=== PATIENT | female | born 2000 | race Caucasian/White ===

== ENCOUNTER 2022-12-09 06:24 | Inpatient (IN) | payer OTHER, SELFPAY ==
[2022-12-09] VITALS (297 sets, daily range): BP systolic 79–165; BP diastolic 36–151; PULSE 62–268; RESP 16–18; TEMP 36.6–37.5; O2SAT 80–100; BMI 28.0
--- NOTE | 2022-12-09 06:23 | PM.IMHP ---
H&P: HPI History of Present Illness Date/Time: 12/09/22 06:23 Chief Complaint: Gestational hypertension at term Narrative: this is the 22-year-old 1 para 0 38 weeks gestation for induction of labor secondary to elevated blood pressures has otherwise been uncomplicated PIH labs will be drawn. She is positive for group B strep PMF Family History Family History Father Diabetes mellitus Other Cervical cancer Social History Social History Substance use: never Spiritual care concerns: No Meds Home Medications and Allergies Home Medications Medication Instructions Recorded Confirmed Type vits no.126-ferrous fum 1 tablet PO DAILY 12/08/22 12/08/22 History 28 mg iron-folic acid 800 mcg tablet (Classic ) Allergies Allergy/AdvReac Type Severity Reaction Status Date / Time No Known Allergies Allergy Verified 12/08/22 12:39 Exam Const: General: cooperative, healthy appearing, comfortable and average body habitus Orientation/consciousness: oriented to person, oriented to place and oriented to time Resp: Effort & Inspection: normal respiratory effort Cardio: Rate: regular rate Rhythm: regular rhythm Heart sounds: S1 normal heart sound present and S2 normal heart sound present GI: Inspection: normal to inspection ( gravid soft uterus) Assessment and Plan Assessment and plan (1) Term : Code(s): Z34.90 - Encounter for supervision of normal , unspecified, unspecified trimester Status: Acute (2) Gestational hypertension: Code(s): O13.9 - Gestational [-induced] hypertension without significant proteinuria, unspecified trimester Status: Acute (3) Positive testing for group B Streptococcus: Code(s): B95.1 - Streptococcus, group B, as the cause of diseases classified elsewhere Status: Acute Plan medical induction labor. PIH labs will be drawn. Group B strep prophylaxis undertaken. Spontaneous vaginal delivery expected
[2022-12-09] MEDS: AMPICILLIN 2 GM/NS 100 ML 2 GM/100 ML BAG IVPB (07:02)
[2022-12-09] MEDS: LACTATED RINGERS 1,000 ML 125 ML IV CONT ×2 (07:02→11:58)
[2022-12-09] MEDS: OXYTOCIN 30 UNITS/NS 500 ML 30 UNITS/500 ML BAG 6 UNITS IV CONT (07:02)
[2022-12-09 07:19] LABS: Basophils Percent Auto 0.3 % (0.2-1.2); Eosinophils Absolute Auto 0.1 K/mm3 (0-0.3); Eosinophils Percent Auto 0.6 % (0-4.4); Hematocrit 32.8 % (37.0-47.0); Hemoglobin 10.8 g/dL (12.0-15.0); Immature Granulocyte Absolute 0.14 K/mm3 (0.00-0.031); Immature Granulocyte Percent A 1.3 % (0-0.5); Lymphocytes Absolute Auto 2.47 K/mm3 (0.9-3.2); Mean Corpuscular HGB Conc 32.9 g/dl (32-36); Mean Corpuscular Hemoglobin 29.6 pg (26-34); Mean Corpuscular Volume 89.9 fl (80-100); Mean Platelet Volume 11.2 fl (7.4-10.4); Monocytes Absolute Auto 0.9 K/mm3 (0.1-0.6); Monocytes Percent Auto 8.7 % (2.6-8.5); Neutrophils Absolute Auto 7.1 K/mm3 (1.3-6.7); Neutrophils Percent Auto 66.1 % (45.5-73.1); Platelet Count Result 162 k/mm3 (150-375); Red Blood Count 3.65 M/mm3 (4.2-5.4); Red Cell Distribution Width 13.3 % (11.5-14.5); White Blood Count 10.8 K/mm3 (4.5-10.0)
[2022-12-09 07:29] LABS: Uric Acid 5.1 mg/dL (2.5-7.5)
[2022-12-09 07:30] LABS: Alanine Aminotransferase 15 U/L (6-35); Albumin Level 3.4 g/dL (3.5-5.1); Alkaline Phosphatase 162 U/L (38-126); Anion Gap 1 mmol/L (8-16); Aspartate Amino Transferase 20 U/L (14-36); Bilirubin,Total 0.2 mg/dL (0.2-1.3); Blood Urea Nitrogen 9 mg/dL (7-17); Calcium 8.5 mg/dL (8.4-10.2); Carbon Dioxide 24 mmol/L (22-30); Chloride 103 mmol/L (98-107); Estimated CRCL calculation 157 ml/min; Estimated Glomerular Filt Rate > 60; Glucose 88 mg/dL (65-110); Potassium 3.6 mmol/L (3.4-5.0); Sodium 128 mmol/L (137-145)
[2022-12-09 08:10] LABS: HIV 1/2 Ab P24 Ag Result Negative (Negative)
[2022-12-09 09:50] LABS: Rapid Plasma Reagin Non-Reactive (NonReactive)
[2022-12-09] MEDS: AMPICILLIN 1 GM/NS 50 ML 1 GM/50 ML BAG IVPB ×3 (11:02→19:32)
[2022-12-09] MEDS: fentaNYL CITRATE INJ (*CRX) 100 MCG/2 ML VIAL 50 MCG IV PUSH ×2 (11:29→12:10)
--- NOTE | 2022-12-09 11:54 | PM.OBPNLAB ---
Pain Control Date/time seen: 12/09/22 11:54 Pain control: tolerating well Comments: Getting epidural Pelvic Exam Dilation (cm): 3
--- NOTE | 2022-12-09 12:41 | WPDANESEPPF ---
Anes - Initial Pre Proc Eval Procedure: Labor Epidural Date/Time: 12/09/22 12:41 Surgeon: Pedro Wright MD Pre Op Diagnosis: labor pain Pre Op Diagnosis: iol Patient Data Age: 22 Gender: F Height: 1.68 m Weight: 79 kg Last Vital Signs Temp 36.9 C 12/09/22 11:00 Pulse 116 H 12/09/22 12:39 Resp 18 12/09/22 11:00 BP 119/69 12/09/22 12:39 Pulse Ox 99 12/09/22 12:40 O2 Del Method Room Air 12/09/22 06:47 Allergies Allergy/AdvReac Type Severity Reaction Status Date / Time No Known Allergies Allergy Verified 12/08/22 12:39 Home Medications Medication Instructions Recorded Confirmed Type vits no.126-ferrous fum 1 tablet PO DAILY 12/08/22 12/08/22 History 28 mg iron-folic acid 800 mcg tablet (Classic ) Laboratory Tests 12/09/22 06:57 WBC 10.8 H K/mm3 (4.5-10.0) RBC 3.65 L M/mm3 (4.2-5.4) Hgb 10.8 L g/dL (12.0-15.0) Hct 32.8 L % (37.0-47.0) MCV 89.9 fl (80-100) MCH 29.6 pg (26-34) MCHC 32.9 g/dl (32-36) RDW 13.3 % (11.5-14.5) Plt Count 162 k/mm3 (150-375) MPV 11.2 H fl (7.4-10.4) Immature Gran % (Auto) 1.3 H % (0-0.5) Neut % (Auto) 66.1 % (45.5-73.1) Lymph % (Auto) 23.0 % (18.3-44.2) [place] % (Auto) 8.7 H % (2.6-8.5) Eos % (Auto) 0.6 % (0-4.4) Baso % (Auto) 0.3 % (0.2-1.2) Lymph # (Auto) 2.47 K/mm3 (0.9-3.2) [place] # (Auto) 0.9 H K/mm3 (0.1-0.6) Eos # (Auto) 0.1 K/mm3 (0-0.3) Baso # (Auto) 0.0 K/mm3 (0.0-0.1) Abs Immat Gran (auto) 0.14 H K/mm3 (0.00-0.031) Absolute Neuts (auto) 7.1 H K/mm3 (1.3-6.7) Absolute Nucleated RBC 0.0 K/mm3 (0.0-0.012) Nucleated RBC % 0.0 % (0.0-0.2) Sodium 128 L mmol/L (137-145) Potassium 3.6 mmol/L (3.4-5.0) Chloride 103 mmol/L (98-107) Carbon Dioxide 24 mmol/L (22-30) Anion Gap 1 L mmol/L (8-16) BUN 9 mg/dL (7-17) Creatinine 0.50 L mg/dL (0.7-1.0) Estim Creat Clear Calc 157 ml/min Estimated GFR > 60 (59 - ) Glucose 88 mg/dL (65-110) Uric Acid 5.1 mg/dL (2.5-7.5) Calcium 8.5 mg/dL (8.4-10.2) Total Bilirubin 0.2 mg/dL (0.2-1.3) AST 20 U/L (14-36) ALT 15 U/L (6-35) Alkaline Phosphatase 162 H U/L (38-126) Total Protein 7.0 g/dL (6.3-8.2) Albumin 3.4 L g/dL (3.5-5.1) RPR Non-reactive (NonReactive) HIV 1&2 Ab/P24 Ag 4thGn Negative (Negative) Blood Type A Positive Antibody Screen Negative : gestational age (DARYL 12/23/22) Patient hx anesthesia problems: none Family hx anesthesia problems: none Results Review: All pre-operative results and documents have been reviewed as part of the pre-operative evaluation. [facility] Family History Family History Father Diabetes mellitus Other Cervical cancer Social History Social History Smoking status: Never smoker Second hand tobacco smoke exposure: No Substance use: never Lack of Transportation: No Lack of Food: Never True Current Housing: I Have Housing Concerned About Future Housing: No Difficulty Paying Gas/Electric Bills: No Difficulty Paying for Meds: No Currently Unemployed: No Education: Grade School Difficulty w/ Childcare or Family Care: No Spiritual care concerns: No Anes - Eval Final PreProcedure Day of Procedure 12/09/22 12:41 Heart: regular rate and rhythm Airway: Mallampati scale class II Neurological: alert and oriented ASA classification: II Emergent: no Anesthetic plan: proceed Anesthesia type and monitoring: regional epidural Results Review: All pre-operative results and documents have been reviewed as part of the pre-operative evaluation. Informed Consent: The patient's anesthetic plan and its attendant risks and benef
--- NOTE | 2022-12-09 15:26 | PC.NURSE ---
1316 - Introductions were made and mother shared how she would like to feed her baby with pumping and bottle. Resources provided with educational trifold for bonding/feeding to call if she has question regarding pump fitting and there is to be no pain with pumping.
--- NOTE | 2022-12-09 16:25 | PM.OBPNLAB ---
Pain Control Date/time seen: 12/09/22 16:25 Pain control: tolerating well and epidural Pelvic Exam Dilation (cm): 5 Effacement (%): 90 station: -1 Amniotic membrane status: Leaking
--- NOTE | 2022-12-09 16:26 | PM.DS ---
DS: Admitting Diagnosis Discharge Date Admitting Diagnosis Term /gestational hypertension DS: Discharge Diagnosis Discharge Diagnosis (1) Positive testing for group B Streptococcus: Code(s): B95.1 - Streptococcus, group B, as the cause of diseases classified elsewhere Status: Acute (2) Gestational hypertension: Code(s): O13.9 - Gestational [-induced] hypertension without significant proteinuria, unspecified trimester Status: Acute (3) Term : Code(s): Z34.90 - Encounter for supervision of normal , unspecified, unspecified trimester Status: Acute DS: Summary Hospital Course Reason for hospitalization: patient was admitted active labor with group B strep. She underwent spontaneous vaginal delivery an adequate treatment for group B strep Hospital Course: hospital course unremarkable. She remained afebrile. She was up voiding without difficulty, ambulating, generally without complaints. Time Spent with Patient Time attestation: Total time spent providing and/or coordinating discharge services: DS: Data Data Completed and Pending Labs on day of discharge: Labs from last 24 hours 12/09/22 06:57 WBC 10.8 H RBC 3.65 L Hgb 10.8 L Hct 32.8 L MCV 89.9 MCH 29.6 MCHC 32.9 RDW 13.3 Plt Count 162 MPV 11.2 H Immature Gran % (Auto) 1.3 H Neut % (Auto) 66.1 Lymph % (Auto) 23.0 [place] % (Auto) 8.7 H Eos % (Auto) 0.6 Baso % (Auto) 0.3 Lymph # (Auto) 2.47 [place] # (Auto) 0.9 H Eos # (Auto) 0.1 Baso # (Auto) 0.0 Abs Immat Gran (auto) 0.14 H Absolute Neuts (auto) 7.1 H Absolute Nucleated RBC 0.0 Nucleated RBC % 0.0 Sodium 128 L Potassium 3.6 Chloride 103 Carbon Dioxide 24 Anion Gap 1 L BUN 9 Creatinine 0.50 L Estim Creat Clear Calc 157 Estimated GFR > 60 Glucose 88 Uric Acid 5.1 Calcium 8.5 Total Bilirubin 0.2 AST 20 ALT 15 Alkaline Phosphatase 162 H Total Protein 7.0 Albumin 3.4 L RPR Non-reactive HIV 1&2 Ab/P24 Ag 4thGn Negative Blood Type A Positive Antibody Screen Negative Discharge Plan Discharge Attending physician on discharge: Pedro Mayfield Consulting providers: Myriam Gonzalez; Angelica Gonzalez Discharging Clinician: Gonzalez Willams Patient Disposition: Home, Self-Care Activity: pelvic rest Diet: regular Discharge Instructions: Call or return if temperature above 100.4? F, increased abdominal pain, increased vaginal bleeding or any new problems. Education: Mom and Baby Guide Given to: Mother Follow-Up: Call your delivering provider's office for an appointment to be seen in: 6 weeks Mom and baby should come to the [facility] for the follow-up appointment. Appointment Date/Time: Tuesday December 13, 2022 at 9:00 am What to expect at your follow-up visit: Call [phone] if you are unable to keep your appointment time. BREAST CARE: * Wear a snug supportive bra. * Bottle Feeding: * May apply ice packs EPISIOTOMY/PERINEAL CARE: * Until bleeding stops, use your corby bottle after urinating * Change your pad frequently throughout the day * You may take sitz baths several times a day (fill your bathtub with warm water and soak for 20 minutes.) Do NOT bathe in the water * No tub baths until seen by your physician - You may shower ACTIVITY: * Rest as much as possible. * Do not exercise or lift anything heavier than your baby (such as laundry or other children.) * Avoid stairs or driving as much as possible. * Do not put anything into the vagina. No douching, tampons, or sexual activity until seen by physician. NOTIFY PHYSICIAN IF YOU HAVE ANY QUESTIONS OR IF ANY OF THE FOLLOWING SYMPTOMS OCCUR: * If your episiotomy/perineum becomes red, swollen, or more painful than what you have experienced in the hospital. * If your vaginal bleeding becomes foul smelling. * If your vaginal bleeding becomes more h
[2022-12-09] MEDS: TERBUTALINE SULFATE 1 MG/ML VIAL 0.25 MG SUB-Q (21:25)
--- NOTE | 2022-12-09 21:44 | PM.OBPNLAB ---
Pain Control Date/time seen: 12/09/22 21:44 Pain control: tolerating well and epidural Pelvic Exam Dilation (cm): 10 Effacement (%): 100 station: 0 Amniotic membrane status: Leaking
--- NOTE | 2022-12-09 23:54 | P.PCNOB_ITS ---
OB - Delivery Note Procedure Delivery date: 12/09/22 Procedure: mil Induction method: AROM Delivery augmentation: Pitocin Delivery monitor: External FHT and Internal Uterine Route of delivery: forceps (low/outlet) Episiotomy description: None Laceration Description: Perineal - 1st Degree Delivery repair: vicryl Specimen: No Quantitative Blood Loss (ml): 160 Anesthesia type: Epidural Disposition: Floor [place] Baby Date of : 12/09/22 Time of : 23:39 Weeks of gestation at delivery: 38 Infant gender: Male position: Left Occiput Posterior Placenta delivery description: Spontaneous Cord Vessel Description: 3 Vessels, Nuchal Cord and Loose
[2022-12-10] VITALS (29 sets, daily range): BP systolic 91–141; BP diastolic 55–79; PULSE 91–123; RESP 16; TEMP 36.4–37.6; O2SAT 97–100
[2022-12-10] MEDS: OXYTOCIN 30 UNITS/NS 500 ML 30 UNITS/500 ML BAG 125 UNITS IV CONT (00:13)
[2022-12-10] MEDS: LACTATED RINGERS 1,000 ML 125 ML IV CONT (00:13)
[2022-12-10] MEDS: BENZOCAINE 20% AER SPR (*SP) 56 GM CAN 1 SPRAY (01:49)
[2022-12-10] MEDS: WITCH HAZEL 40 PADS 1 PAD (01:50)
[2022-12-10] MEDS: ACETAMINOPHEN 325 MG TABLET 650 MG PO (03:29)
[2022-12-10 06:03] LABS: Hematocrit 29.6 % (37.0-47.0); Hemoglobin 9.8 g/dL (12.0-15.0)
--- NOTE | 2022-12-10 07:35 | PM.OBPNVD ---
OB - PN: Subj Subjective Date/time seen: 12/10/22 07:35 Patient comments: no complaints and pain well controlled baby status: doing well OB - PN: Obj Data Labs 12/10/22 05:04 12/09/22 06:57 Labs: Laboratory Results - last 24 hr 12/09/22 12/10/22 06:57 05:04 WBC 10.8 H RBC 3.65 L Hgb 10.8 L 9.8 L Hct 32.8 L 29.6 L MCV 89.9 MCH 29.6 MCHC 32.9 RDW 13.3 Plt Count 162 MPV 11.2 H Immature Gran % (Auto) 1.3 H Neut % (Auto) 66.1 Lymph % (Auto) 23.0 [place] % (Auto) 8.7 H Eos % (Auto) 0.6 Baso % (Auto) 0.3 Lymph # (Auto) 2.47 [place] # (Auto) 0.9 H Eos # (Auto) 0.1 Baso # (Auto) 0.0 Abs Immat Gran (auto) 0.14 H Absolute Neuts (auto) 7.1 H Absolute Nucleated RBC 0.0 Nucleated RBC % 0.0 RPR Non-reactive HIV 1&2 Ab/P24 Ag 4thGn Negative Blood Type A Positive Antibody Screen Negative OB - PN A/P Plan day: 1 Plan: routine care Time Spent With Patient Time: Total time spent is greater than 50% in coordination of care (as documented) at patient's floor/unit and/or counseling patient: Time with patient: less than 15 minutes Exam Const: General: cooperative, healthy appearing and comfortable Nutritional Appearance: average body habitus Orientation/consciousness: oriented to person, oriented to place and oriented to time HENMT: Head: normal to inspection Resp: Effort & Inspection: normal respiratory effort Cardio: Rate: regular rate Rhythm: regular rhythm Heart sounds: S1 normal heart sound present and S2 normal heart sound present GI: Inspection: normal to inspection ( fundus firm below the umbilicus) Auscultation: normal bowel sounds
[2022-12-10] MEDS: DOCUSATE SODIUM 100 MG CAPSULE PO ×2 (09:25→17:22)
[2022-12-10] MEDS: MULTIVIT/MIN/PREN/FOL AC/IRON TABLET 1 TAB PO (09:25)
[2022-12-10] MEDS: POLYSACCHARIDE IRON COMPLEX 150 MG CAPSULE PO ×2 (09:25→17:22)
[2022-12-10] MEDS: IBUPROFEN 600 MG TABLET PO ×2 (09:29→17:23)
--- NOTE | 2022-12-10 12:43 | PC.NURSE ---
1113 - Purposely rounded to assess pumping needs and no one was in the room.
--- NOTE | 2022-12-10 13:09 | WPDANLDPN2 ---
Anes-Prog Note L&D Date/Time: 12/10/22 13:09 Comfortable throughout: labor and delivery Neuraxial method: epidural Epidural/Spinal procedure site: clean & non-tender Neuro status: Neuro function grossly intact. Cardiovascular status: normal Respiratory status: normal Airway patency: baseline Mental status: baseline Post-Op hydration status: normal Vital Signs: Last Vital Signs Temp 36.4 C L 12/10/22 12:20 Pulse 91 12/10/22 12:20 Resp 16 12/10/22 12:20 BP 114/79 12/10/22 12:20 Pulse Ox 99 12/10/22 12:20 O2 Del Method Room Air 12/10/22 08:00 Pain score (VAS): 06/08 I/O: Intake & Output 12/09/22 12/10/22 12/10/22 23:59 07:59 15:59 Intake Total 1000 240 Output Total 240 Balance 1000 -240 240 Post-procedural complaints: none Patient feedback: Patient satisfied with anesthetic care.
[2022-12-11 08:20] VITALS: BP 118/72; PULSE 86; RESP 18; TEMP 36.7; O2SAT 100
--- NOTE | 2022-12-11 08:23 | PM.OBPNVD ---
OB - PN: Subj Subjective Date/time seen: 12/11/22 08:23 Narrative: Pain OK. Desires circumcision for son. OB - PN: Obj Data Labs 12/10/22 05:04 12/09/22 06:57 OB - PN A/P Plan Comments: A: PPD#2, doing well. P: Home to f/u 6 weeks. Exam Psych: Other: AVSS ABD soft, nontender, fundus firm EXT nontender
[2022-12-11] MEDS: MULTIVIT/MIN/PREN/FOL AC/IRON TABLET 1 TAB PO (08:24)
[2022-12-11] MEDS: IBUPROFEN 600 MG TABLET PO ×2 (08:24→16:25)
[2022-12-11] MEDS: POLYSACCHARIDE IRON COMPLEX 150 MG CAPSULE PO ×2 (08:25→16:25)
[2022-12-11] MEDS: DOCUSATE SODIUM 100 MG CAPSULE PO ×2 (08:25→16:25)
[2022-12-11] MEDS: valACYclovir HCL 500 MG TABLET 2000 MG PO (16:25)
--- NOTE | 2022-12-11 16:40 | PC.NURSE ---
1500 Patient called for RN, says that pt has hx of cold sores and feels one coming on on her upper lip, she is requesting treatment. RN to notify Dr. Willams for orders. Advised pt until treatment is complete, not to kiss the baby and to practice good hand hygiene. Pt's significant other also advised. [address] Fabian of above note, no further orders. Copy of note to be placed in baby's chart.
[2022-12-11] MEDS: TETANUS,DIPHTHERIA,AC PERTUSSIS ADULT (0.5 ML) BOOSTRIX IM (16:56)
--- NOTE | 2022-12-11 17:01 | PC.NURSE ---
Patient to view the discharge video Mother & Baby Care, The First Two Weeks online. Patient was given the opportunity and encouraged to ask questions. Patient verbalized understanding of information shared and has been given the mother/baby guide for home reference.
--- NOTE | 2022-12-11 17:13 | PC.NURSE ---
Patient discharged to a No Care Bed. Discharge information given and advised that she can still order a tray for food, pt given supplies and any questions were answered.
== END 2022-12-11 17:13 | disposition home or self-care (01) | DRG 560 ==
LOC: ANHOB2 12-11 12:40 → ANHLDR 12-14 08:37 → ANHOB2 12-14 08:37
PROVIDERS: Admitting Provider Obstetrics & Gynecology; PCP Family Medicine; Visit Provider Obstetrics & Gynecology
DX: O13.4 Gestational [pregnancy-induced] hypertension without significant proteinuria, complicating childbirth (principal); O69.81X0 Labor and delivery complicated by cord around neck, without compression, not applicable or unspecified; Z37.0 Single live birth; Z3A.38 38 weeks gestation of pregnancy; O70.0 First degree perineal laceration during delivery; O99.824 Streptococcus B carrier state complicating childbirth
CPT/HCPCS: 36415; 80053; 84550; 85014; 85018; 85025; 86592; 86703; 86850; 86900; 86901; 90715; A9270; G0432; J0290; J2590; J2795; J3010; J3105; J7120